=== PATIENT | female | born 1950 | race Caucasian/White ===

== ENCOUNTER 2017-01-13 06:36 | Day surgery (SDC) | payer OTHER ==
[~2017-01-13] VITALS: Ht 149.9 cm; Wt 62.9 kg
[2017-01-13 07:13] VITALS: Ht 149.9 cm; Wt 62.9 kg
[2017-01-13] MEDS ORDERED: CHEMO MED (07:39)
[2017-01-13] MEDS ORDERED: TYLENOL (07:39)
[2017-01-13 08:01] VITALS: BP 159/77; PULSE 73; RESP 22
--- NOTE | 2017-01-13 08:49 | OPPN ---
Date/Time of Note Date/Time of Note DATE: 01/13/17 TIME: 08:47 Operative Report Preoperative Diagnosis Abdominal pain Chronic heartburn Screening colonoscopy Postoperative Diagnosis Hiatal hernia and gastroesophageal reflux disease Gastritis with erosions Internal hemorrhoids Operation/Procedure Performed Esophagogastroduodenoscopy and biopsy Colonoscopy Provider: KAMINI GOLD MD Anesthesia Type: moderate sedation Estimated blood loss: none Transfusion Required: no Specimens Gastric mucosal biopsy for H. pylori test Grafts/Implants: none Complications: no KAMINI GOLD MD Jan 13, 2017 08:49
[2017-01-13] MEDS ORDERED: FENTAnyl 50 MCG/ML VIAL ONE (09:00)
[2017-01-13] MEDS ORDERED: MIDAZOLAM 1 MG/ML 2 ML INJ ONE ×2 (09:00)
[2017-01-13 09:15] VITALS: BP 133/60; PULSE 60; RESP 14
--- NOTE | 2017-01-13 09:29 | GILP ---
DATE OF PROCEDURE: 01/13/2017 PROCEDURE PERFORMED: 1. Esophagogastroduodenoscopy and biopsy. 2. Colonoscopy. PREOPERATIVE DIAGNOSES: 1. Abdominal pain. 2. Chronic heartburn. 3. Screening colonoscopy. POSTOPERATIVE DIAGNOSES: 1. Hiatal hernia and gastroesophageal reflux disease. 2. Gastritis with erosions and gastric mucosal biopsies were taken for Helicobacter pylori test. 3. Colonoscopy all the way to the cecum. 4. Internal hemorrhoids. 5. No colon neoplasm was identified. INDICATION: Ms. Brielle Sal is a 66-year-old female patient who had upper abdominal pain and chronic heartburn not responding to therapy. She also needed a screening colonoscopy. The procedures and possible complications were well explained to the patient. She understood and consented to the procedures. DESCRIPTION OF PROCEDURE: Under influence of fentanyl and Versed, the gastroscope was carefully introduced into the esophagus and under direct vision it was advanced to the stomach, into the pylorus, into the duodenal bulb, and descending duodenum. FINDINGS: Esophagus: The patient had hiatal hernia and gastroesophageal reflux disease. Stomach: She had gastritis with erosions. Gastric mucosal biopsies were taken for H pylori test. Duodenum was normal. The colonoscope was carefully introduced in the rectum and under direct vision it was advanced all the way to the cecum. FINDINGS: The patient had internal hemorrhoids, and no colon neoplasm was identified. She tolerated the procedures very well. There is no complication from the procedures. At the end of the procedures, she was awake with stable vital signs and she was discharged home in the care of her family. IMPRESSION: Please see postop diagnoses. PLAN: 1. Omeprazole 40 mg in the morning. 2. Await H pylori test report. 3. Next screening colonoscopy in 10 years. Dictated By: MD JORGE James/gurvinder/brendon /Document#: [id number] CC: Magnolia Ziegler MD;*[facility] [place]*
== END 2017-01-13 11:11 | disposition home or self-care (01) ==
LOC: GIL 06:36
PROVIDERS: ATTEND Internal Medicine Gastroenterology
DX: Z12.11 Encounter for screening for malignant neoplasm of colon (principal); K29.60 Other gastritis without bleeding; K44.9 Diaphragmatic hernia without obstruction or gangrene; K64.8 Other hemorrhoids
CPT/HCPCS: 43239; 45378; 87081; J2250; J3010; Z7610